=== PATIENT | female | born 1930 | race African-American/Black ===

== ENCOUNTER 2017-03-31 20:05 | Emergency (ER) | payer MEDICARE, OTHER ==
[~2017-03-31] VITALS: Ht 165.1 cm; Wt 65.0 kg
[~2017-03-31 20:05] MED LIST: BRIM0.2S4 EACH EYE; LORA1TAB12 PO; SENO8.6T5 PO; TIMO0.5S30 EACH EYE; TRAV0.00 EACH EYE; VITA400C28 PO
[2017-03-31 20:07] VITALS: BP 193/84; PULSE 97; RESP 18; TEMP 98.4; O2SAT 98
[2017-03-31 20:48] VITALS: O2SAT 99
[2017-03-31 21:00] LABS: AUTOMATED NEUTROPHIL # 3.7 TH/MM3 (1.8-7.7); BASOPHIL % 0.4 % (0.0-2.0); EOSINOPHIL # 0.1 TH/MM3 (0-0.4); EOSINOPHIL % 1.6 % (0.0-4.0); HEMATOCRIT 42.4 % (35.0-46.0); HEMO FLAGS DIFF FINAL; LYMPH % 25.7 % (9.0-44.0); LYMPHOCYTE # 1.5 TH/MM3 (1.0-4.8); MEAN CELL VOLUME 95.7 FL (80.0-100.0); MEAN CORPUSCULAR HEMOGLOBIN 32.5 PG (27.0-34.0); MEAN CORPUSCULAR HGB CONC 33.9 % (32.0-36.0); MONO % 10.2 % (0.0-8.0); NEUT % 62.1 % (16.0-70.0); PLATELET COUNT 210 TH/MM3 (150-450); RED BLOOD COUNT 4.43 MIL/MM3 (4.00-5.30); RED CELL DISTRIBUTION WIDTH 14.2 % (11.6-17.2); WHITE BLOOD COUNT 5.9 TH/MM3 (4.0-11.0)
[2017-03-31 21:13] LABS: APTT (PATIENT) 24.3 SEC (24.3-30.1); PROTHROMBIN TIME - PATIENT 11.2 SEC (9.8-11.6)
--- NOTE | 2017-03-31 21:13 | PD ---
HPI Chief Complaint: Cardiac Complaint Time Seen by Provider: 21:09 Travel History International Travel<30 days: No Contact w/Intl Traveler<30days: No Traveled to known affect area: No History of Present Illness HPI 86-year-old female that presents to the ED for evaluation of chest pressure and dizziness. Patient apparently has had this since yesterday. This is obtained from the family member as patient herself states that she only has back pain. Per patient she has had lower back pain for years almost 30 years since an injury. Per patient hurts to bend. Per family members she complained yesterday of chest pressure. She thought it was due to anxiety and her family member wanted her to get checked by a physician today but apparently she declined. She came here with an elder family member as well as her daughter and apparently her daughter had to leave bleeding because she had to go greens picker her prescription for pneumonia. She has no other complaints. Patient herself denies any chest pain or lightheadedness or dizziness. She has no allergies to medication. She is not taking anything for this. Again history is somewhat difficult to obtain as patient is telling me a different story than the family member. PFSH Past Medical History Medical History: Unable to Obtain ?: Not Past Surgical History Mastectomy: Yes (left side) Social History Alcohol Use: No Tobacco Use: No Substance Use: No Allergies-Medications (Allergen,Severity, Reaction): Coded Allergies: No Known Allergies (Unverified , 03/31/17) Reported Meds & Prescriptions Reported Meds & Active Scripts Active Reported Senokot (Sennosides) 8.6 Mg Tab 8.6 Mg PO HS Vitamin D (Cholecalciferol) 400 Unit Cap 1 Cap PO DAILY Timolol Opth Drops 0.5 % Soln 1 Drop EACH EYE BID Travatan Z Opth Drops (Travoprost) 0.004 % Soln 1 Drop EACH EYE HS Lorazepam 1 Mg Tab 1 Mg PO HS PRN Brimonidine Opth Drops (Brimonidine Tartrate) 0.2% Soln 1 Drop EACH EYE BID Review of Systems Except as stated in HPI: all other systems reviewed are Neg Physical Exam Narrative GENERAL: SKIN: Warm and dry. HEAD: Atraumatic. Normocephalic. EYES: Pupils equal and round. No scleral icterus. No injection or drainage. ENT: No nasal bleeding or discharge. Mucous membranes pink and moist. Tongue is midline, no uvula deviation. NECK: Trachea midline. No JVD. CARDIOVASCULAR: Regular rate and rhythm. No murmurs, S3, S4. RESPIRATORY: No accessory muscle use. Clear to auscultation. Breath sounds equal bilaterally. GASTROINTESTINAL: Abdomen soft, non-tender, nondistended. Hepatic and splenic margins not palpable. MUSCULOSKELETAL: Extremities without clubbing, cyanosis, or edema. No obvious deformities. Full ROM of the upper and lower extremities. pain on the lumbar musculature with bending. Minimal lumbar spine tenderness to palpation. No thoracic or cervical spine tenderness to palpation. 2+ pulses bilaterally. NEUROLOGICAL: Awake and alert. No obvious cranial nerve deficits. Motor grossly within normal limits. Five out of 5 muscle strength in the arms and legs. Normal speech. PSYCHIATRIC: Appropriate mood and affect; insight and judgment normal. Data Data Last Documented VS Vital Signs Date Time Temp Pulse Resp B/P Pulse Ox O2 Delivery O2 Flow Rate FiO2 03/31/17 20:48 99 Room Air 03/31/17 20:07 98.4 97 18 193/84 Orders Electrocardiogram (03/31/17 20:37) Complete Blood Count With Diff (03/31/17 20:37) Comprehensive Metabolic Panel (03/31/17 20:37) Ckmb (Isoenzyme) Profile (03/31/17 20:37) Troponin I (03/31/17 20:37) Prothrombin Time / Inr (Pt) (03/31/17 20:37) Act Partial Throm Time (Ptt) (03/31/17 20:37) Magnesium (Mg) (03/31/17 20:37) Thyroid Stimulating Hormone (03/31/17 20:37) Chest, Single Ap (03/31/17 20:37) Iv Access Insert/Monitor (03/31/17 20:37) Ecg Monitoring (03/31/17 20:37) Oximetry (03/31/17 20:37) Spine, Lumbar Comp W/Obliq (03/31/17 ) CKMB (03/31/17 20:47) CKMB% (03/31/17 20:47) Acetaminophen (Tylenol) (03/31/17 22:15) Labs Laboratory Tests Test 03/31/17 20:47 White Blood Count 5.9 TH/MM3 Red Blood Count 4.43 MIL/MM3 Hemoglobin 14.4 GM/DL Hematocrit 42.4 % Mean Corpuscular Volume 95.7 FL Mean Corpuscular Hemoglobin 32.5 PG Mean Corpuscular Hemoglobin 33.9 % Concent Red Cell Distribution Width 14.2 % Platelet Count 210 TH/MM3 Mean Platelet Volume 8.9 FL Neutrophils (%) (Auto) 62.1 % Lymphocytes (%) (Auto) 25.7 % Monocytes (%) (Auto) 10.2 % Eosinophils (%) (Auto) 1.6 % Basophils (%) (Auto) 0.4 % Neutrophils # (Auto) 3.7 TH/MM3 Lymphocytes # (Auto) 1.5 TH/MM3 Monocytes # (Auto) 0.6 TH/MM3 Eosinophils # (Auto) 0.1 TH/MM3 Basophils # (Auto) 0.0 TH/MM3 CBC Comment DIFF FINAL Differential Comment Prothrombin Time 11.2 SEC Prothromb Time International 1.0 RATIO Ratio Activated Partial 24.3 SEC Thromboplast Time Sodium Level 136 MEQ/L Potassium Level 4.1 MEQ/L Chloride Level 102 MEQ/L Carbon Dioxide Level 22.7 MEQ/L Anion Gap 11 MEQ/L Blood Urea Nitrogen 11 MG/DL Creatinine 1.09 MG/DL Estimat Glomerular Filtration 57 ML/MIN Rate Random Glucose 160 MG/DL Calcium Level 9.1 MG/DL Magnesium Level 2.3 MG/DL Total Bilirubin 0.5 MG/DL Aspartate Amino Transf 21 U/L (AST/SGOT) Alanine Aminotransferase 20 U/L (ALT/SGPT) Alkaline Phosphatase 54 U/L Total Creatine Kinase 104 U/L Creatine Kinase MB 1.0 NG/ML Troponin I 0.02 NG/ML Total Protein 7.6 GM/DL Albumin 3.8 GM/DL Thyroid Stimulating Hormone 1.190 uIU/ML [address] [place] [address] Medical Decision Making Medical Screen Exam Complete: Yes Emergency Medical Condition: Yes Medical Record Reviewed: Yes Interpretation(s) CBC & BMP Diagram 03/31/17 20:47 LFts WNL EKG shows sinus rhythm with no sign of acute ischemia and arrhythmia. Read by me and attending. Last Impressions Chest X-Ray 03/31/[id number] Signed Impressions: Service Date/Time: Friday, March 31, 2017 20:58 - CONCLUSION: No acute cardiopulmonary disease demonstrated. Compensated mild cardiomegaly. Tortuous thoracic aorta. Mino Pineda MD Lumbar Spine X-Ray 03/31/17 0000 Signed Impressions: Service Date/Time: Friday, March 31, 2017 21:02 - CONCLUSION: Multilevel degenerative changes as above. No fracture or subluxation of the lumbar spine. Mino Pineda MD Differential Diagnosis Chest pain versus atypical chest pain versus anxiety versus chronic back pain versus back pain Narrative Course 86-year-old female that presents to the ED for evaluation of back pain and possibly chest pain. Patient was properly examined and was found to have signs and symptoms of unclear etiology at this time. Patient does appear to have muscle scale back pain. X-ray will be done. Family member states that she's been complaining of chest pressure which do believe is secondary to anxiety. Patient is 86 years old and she does have risk factors for cardiac disease to her for cardiac workup was ordered. Patient and family agree with this. Labs and imaging showed no sign of acute disease. Patient still complains only of back pain. Denies any chest pain. My attending Dr. Graham evaluated the patient with me and agrees with plan. As was and imaging here everything was negative patient has no active chest pain with no recommend further workup for the chest pain. The recommend treating her pain with Tylenol. My attending agrees the patient can be safely discharged home. Patient was told this as well as family and they agree with plan. Follow with PCP. See ED for any worsening symptoms. Diagnosis Primary Impression: Back pain Qualified Code: M54.5 - Acute midline low back pain without sciatica Patient Instructions: General Instructions Additional Instructions: Tylenol or Motrin for pain as needed Follow-up with PCP. See ED for any worsening symptoms. Apply ice or heat as needed for pain Med/Other Pt SpecificInfo: No Change to Meds Disposition: 01 DISCHARGE HOME Condition: Stable Nain Brewster Mar 31, 2017 21:13
--- NOTE | 2017-03-31 21:23 | RADRPT ---
EXAM DATE/TIME: 03/31/2017 20:58 [facility] COMPARISON: No previous studies available for comparison. INDICATIONS : Chest pain and dizziness. MEDICAL HISTORY : None. SURGICAL HISTORY : None. ENCOUNTER: Initial ACUITY: 1 day PAIN SCORE: 2/10 LOCATION: Bilateral chest FINDINGS: No infiltrate, effusion or pneumothorax demonstrated. Mild cardiomegaly noted. Thoracic aorta is tort uous and atherosclerotic. CONCLUSION: No acute cardiopulmonary disease demonstrated. Compensated mild cardiomegaly. Tortuous thoracic aorta . Mino Pineda MD on March 31, 2017 at 21:20 Board Certified Radiologist. This report was verified electronically.
--- NOTE | 2017-03-31 21:25 | RADRPT ---
EXAM DATE/TIME: 03/31/2017 21:02 [facility] COMPARISON: No previous studies available for comparison. INDICATIONS : Lumbar spine pain. MEDICAL HISTORY : None. SURGICAL HISTORY : None. ENCOUNTER: Initial ACUITY: 1 day PAIN SCORE: 5/10 LOCATION: Bilateral lumbar spine FINDINGS: Of fracture or subluxation of the lumbar spine. Vertebral bodies have normal height. Moderate to severe disc space narrowing and chronic sclerosis of the vertebral body and plates seen a t L1/L2, L2/L3 and L3/L4. There are moderate changes at L4/L5 and L5/S1. CONCLUSION: Multilevel degenerative changes as above. No fracture or subluxation of the lumbar spine. Mino Pineda MD on March 31, 2017 at 21:22 Board Certified Radiologist. This report was verified electronically.
[2017-03-31 21:26] LABS: ALT (GPT) 20 U/L (10-53); ANION GAP 11 MEQ/L (5-15); AST (GOT) 21 U/L (15-37); BICARBONATE 22.7 MEQ/L (21.0-32.0); BLOOD UREA NITROGEN 11 MG/DL (7-18); CHLORIDE 102 MEQ/L (98-107); GLOMERULAR FILTRATION RATE 57 ML/MIN (>89); MAGNESIUM 2.3 MG/DL (1.5-2.5); SODIUM (NA) 136 MEQ/L (136-145)
[2017-03-31 21:31] LABS: POTASSIUM 4.1 MEQ/L (3.5-5.1)
[2017-03-31 21:37] LABS: ALKALINE PHOSPHATASE 54 U/L (45-117); CREATINE KINASE 104 U/L (26-192); TOTAL BILIRUBIN ADULT 0.5 MG/DL (0.2-1.0)
[2017-03-31] MEDS ORDERED: ACETAMINOPHEN 325 MG TAB PO ONE (22:15)
--- NOTE | 2017-03-31 22:43 | PD ---
Data Data Last Documented VS Vital Signs Date Time Temp Pulse Resp B/P Pulse Ox O2 Delivery O2 Flow Rate FiO2 03/31/17 20:48 99 Room Air 03/31/17 20:07 98.4 97 18 193/84 Orders Electrocardiogram (03/31/17 20:37) Complete Blood Count With Diff (03/31/17 20:37) Comprehensive Metabolic Panel (03/31/17 20:37) Ckmb (Isoenzyme) Profile (03/31/17 20:37) Troponin I (03/31/17 20:37) Prothrombin Time / Inr (Pt) (03/31/17 20:37) Act Partial Throm Time (Ptt) (03/31/17 20:37) Magnesium (Mg) (03/31/17 20:37) Thyroid Stimulating Hormone (03/31/17 20:37) Chest, Single Ap (03/31/17 20:37) Iv Access Insert/Monitor (03/31/17 20:37) Ecg Monitoring (03/31/17 20:37) Oximetry (03/31/17 20:37) Spine, Lumbar Comp W/Obliq (03/31/17 ) CKMB (03/31/17 20:47) CKMB% (03/31/17 20:47) Acetaminophen (Tylenol) (03/31/17 22:15) Labs Laboratory Tests Test 03/31/17 20:47 White Blood Count 5.9 TH/MM3 Red Blood Count 4.43 MIL/MM3 Hemoglobin 14.4 GM/DL Hematocrit 42.4 % Mean Corpuscular Volume 95.7 FL Mean Corpuscular Hemoglobin 32.5 PG Mean Corpuscular Hemoglobin 33.9 % Concent Red Cell Distribution Width 14.2 % Platelet Count 210 TH/MM3 Mean Platelet Volume 8.9 FL Neutrophils (%) (Auto) 62.1 % Lymphocytes (%) (Auto) 25.7 % Monocytes (%) (Auto) 10.2 % Eosinophils (%) (Auto) 1.6 % Basophils (%) (Auto) 0.4 % Neutrophils # (Auto) 3.7 TH/MM3 Lymphocytes # (Auto) 1.5 TH/MM3 Monocytes # (Auto) 0.6 TH/MM3 Eosinophils # (Auto) 0.1 TH/MM3 Basophils # (Auto) 0.0 TH/MM3 CBC Comment DIFF FINAL Differential Comment Prothrombin Time 11.2 SEC Prothromb Time International 1.0 RATIO Ratio Activated Partial 24.3 SEC Thromboplast Time Sodium Level 136 MEQ/L Potassium Level 4.1 MEQ/L Chloride Level 102 MEQ/L Carbon Dioxide Level 22.7 MEQ/L Anion Gap 11 MEQ/L Blood Urea Nitrogen 11 MG/DL Creatinine 1.09 MG/DL Estimat Glomerular Filtration 57 ML/MIN Rate Random Glucose 160 MG/DL Calcium Level 9.1 MG/DL Magnesium Level 2.3 MG/DL Total Bilirubin 0.5 MG/DL Aspartate Amino Transf 21 U/L (AST/SGOT) Alanine Aminotransferase 20 U/L (ALT/SGPT) Alkaline Phosphatase 54 U/L Total Creatine Kinase 104 U/L Creatine Kinase MB 1.0 NG/ML Troponin I 0.02 NG/ML Total Protein 7.6 GM/DL Albumin 3.8 GM/DL Thyroid Stimulating Hormone 1.190 uIU/ML 3rd Gen [facility] Supervised Visit with KWAKU: Yes Narrative Course The history, exam, and medical decision-making in the associated mid-level provider note were completed with my assistance. I reviewed and agree with the findings presented. I attest that I had a [id number] encounter with the patient on the same day, and personally performed and documented my assessment and findings in the medical record. *My assessment and Findings: 86 year-old woman, clinical some chest and back pain. Looks well. Patient has no pain now. The history is a little bit unclear as or stiffness when with the family and the patient reports. Nonetheless she looks well. The symptoms don' t seem especially concerning for ACS. Her labs are unremarkable. EKG is reassuring. Recommend close outpatient follow-up. Tylenol for back pain. Diagnosis Primary Impression: Back pain Qualified Code: M54.5 - Acute midline low back pain without sciatica Patient Instructions: General Instructions, Back Pain (ED) Departure Forms: Tests/Procedures Additional Instruction: Tylenol or Motrin for pain as needed Follow-up with PCP. See ED for any worsening symptoms. Apply ice or heat as needed for pain Disposition: 01 DISCHARGE HOME Condition: Stable Prashanth Graham MD Mar 31, 2017 22:43
--- NOTE | 2017-04-01 08:05 | EKG ---
Date Performed: 03/31/2017 Time Performed: 20:51:39 PTAGE: 86 years EKG: Sinus rhythm POSSIBLE LEFT ATRIAL ENLARGEMENT POSSIBLE LEFT VENTRICULAR HYPERTROPHY ABNORMAL ECG COMPARED TO PRIO R ELECTROCARDIOGRAM, There is mild anterior ST elevation. This does not reach significance but clini fidel correlation is suggested. PREVIOUS TRACING : 01/20/1996 13.49 DOCTOR: Royce Haney Interpretating Date/Time 04/01/2017 08:02:57
== END 2017-03-31 22:32 | disposition home or self-care (01) ==
LOC: NEPC 20:05
DX: M54.5 Low back pain (principal); R42 Dizziness and giddiness; R94.31 Abnormal electrocardiogram [ECG] [EKG]
CPT/HCPCS: 71010; 72110; 80053; 82550; 82552; 83735; 84443; 84484; 85025; 85610; 85730; 93005; 99285

== ENCOUNTER 2017-04-06 15:12 | Observation (INO) | payer MEDICARE, OTHER ==
[~2017-04-06] VITALS: Ht 160 cm; Wt 50.0 kg
[2017-04-06 15:44] VITALS: BP 159/79; PULSE 106; RESP 16; TEMP 98.6; O2SAT 98
[2017-04-06 15:47] VITALS: BP 159/79; PULSE 104; RESP 16; TEMP 98.6; O2SAT 98
[2017-04-06] MEDS ORDERED: SODIUM CHLORIDE 0.9% FLUSH 5 ML FLUSH IV FLUSH PRN (16:00)
--- NOTE | 2017-04-06 16:06 | PD ---
HPI Chief Complaint: Psychiatric Symptoms Time Seen by Provider: 15:59 Travel History International Travel<30 days: No Contact w/Intl Traveler<30days: No Traveled to known affect area: No History of Present Illness HPI 86-year-old [place] female brought in by ambulance with reports of acute mental status changes. EMS reports that the daughter states the patient has been more confused and complaining of visual hallucinations. Patient has a history of dementia. She was recently seen with complaints of back pain and treated with Tylenol just this past week. Patient was reported to have chest pressure at that time as well. Cardiac workup was not initiated after preliminary labs were completed at that time. Currently patient only complains of her chronic low back pain which she's had for many years after an accident 30 years prior. She denies fever, chills, or other symptoms. She however is somewhat limited secondary to the patient's dementia. He does appear confused, and answers are somewhat confusing. She has no known drug allergies PFSH Past Medical History Dementia: Yes Influenza Vaccination: No ?: Not Past Surgical History Surgical History: Unable to Obtain Mastectomy: Yes (left side) Social History Alcohol Use: Yes (1 PER DAY) Tobacco Use: No Substance Use: No Allergies-Medications (Allergen,Severity, Reaction): Coded Allergies: No Known Allergies (Unverified , 04/06/17) Reported Meds & Prescriptions Reported Meds & Active Scripts Active Reported Senokot (Sennosides) 8.6 Mg Tab 8.6 Mg PO HS Vitamin D (Cholecalciferol) 400 Unit Cap 1 Cap PO DAILY Timolol Opth Drops 0.5 % Soln 1 Drop EACH EYE BID Travatan Z Opth Drops (Travoprost) 0.004 % Soln 1 Drop EACH EYE HS Lorazepam 1 Mg Tab 1 Mg PO HS PRN Brimonidine Opth Drops (Brimonidine Tartrate) 0.2% Soln 1 Drop EACH EYE BID Review of Systems ROS Limitations: Clinical Condition, Altered Mental Status, Poor Historian General / Constitutional: No: Fever Eyes: No: Visual changes HENT: No: Headaches Cardiovascular: No: Chest Pain or Discomfort Respiratory: No: Shortness of Breath Gastrointestinal: No: Abdominal Pain Genitourinary: No: Dysuria Musculoskeletal: No: Pain Skin: No Rash Neurologic: No: Weakness Psychiatric: No: Depression Endocrine: No: Polydipsia Hematologic/Lymphatic: No: Easy Bruising Physical Exam Exam Limitations: Clinical Condition, Altered Mental Status, Poor Historian Narrative GENERAL: Patient appears in no acute distress. SKIN: Warm and dry. Normal color. Normal turgor. No rash. HEAD: Atraumatic. Normocephalic. EYES: Pupils equal and round. No scleral icterus. No injection or drainage. ENT: No nasal bleeding or discharge. Mucous membranes pink and moist. Pharynx is clear. Airway is patent. NECK: Trachea midline. No JVD. Supple and nontender. CARDIOVASCULAR: Regular rate and rhythm. No murmurs gallops or rubs appreciated. RESPIRATORY: No accessory muscle use. Clear to auscultation. Breath sounds equal bilaterally. GASTROINTESTINAL: Abdomen soft, non-tender, nondistended. Hepatic and splenic margins not palpable. MUSCULOSKELETAL: Extremities without clubbing, cyanosis, or edema. No obvious deformities. NEUROLOGICAL: Awake and alert. No obvious cranial nerve deficits. Motor grossly within normal limits. Five out of 5 muscle strength in the arms and legs. Normal speech. PSYCHIATRIC: Appropriate mood and affect; insight and judgment normal. Data Data Last Documented VS Vital Signs Date Time Temp Pulse Resp B/P Pulse Ox O2 Delivery O2 Flow Rate FiO2 04/06/17 18:26 99 16 189/84 99 Room Air 04/06/17 15:47 98.6 Orders Electrocardiogram (04/06/17 15:53) Complete Blood Count With Diff (04/06/17 15:53) Comprehensive Metabolic Panel (04/06/17 15:53) Creatine Kinase (Cpk) (04/06/17 15:53) Prothrombin Time / Inr (Pt) (04/06/17 15:53) Act Partial Throm Time (Ptt) (04/06/17 15:53) Troponin I (04/06/17 15:53) Thyroid Stimulating Hormone (04/06/17 15:53) Urinalysis - C+S If Indicated (04/06/17 15:53) Chest, Single Ap (04/06/17 15:53) Blood Glucose (04/06/17 15:53) Ecg Monitoring (04/06/17 15:53) Iv Access Insert/Monitor (04/06/17 15:53) Cath For Specimen (04/06/17 15:53) Oximetry (6/19/17 15:53) Sodium Chloride 0.9% Flush (Ns Flush) (04/06/17 16:00) Ct Brain W/O Iv Contrast(Rout) (04/06/17 15:53) Sodium Chlorid 0.9% 500 Ml Inj (Ns 500 M (04/06/17 16:45) Urine Culture (04/06/17 16:37) Ceftriaxone Inj (Rocephin Inj) (04/06/17 17:07) Labs Laboratory Tests Test 04/06/17 04/06/17 16:37 17:26 Urine Color LIGHT-YELLOW Urine Turbidity CLEAR Urine pH 5.0 Urine Specific [place] 1.005 Urine Protein NEG mg/dL Urine Glucose (UA) NEG mg/dL Urine Ketones NEG mg/dL Urine Occult Blood NEG Urine Nitrite NEG Urine Bilirubin NEG Urine Urobilinogen LESS THAN 2.0 MG/DL Urine Leukocyte Esterase MOD Urine RBC 1 /hpf Urine WBC 7 /hpf Urine Squamous Epithelial <1 /hpf Cells Urine Bacteria OCC /hpf Urine Hyaline Casts 1 /lpf Microscopic Urinalysis Comment CATH-CULTURE IND White Blood Count 5.1 TH/MM3 Red Blood Count 4.03 MIL/MM3 Hemoglobin 13.4 GM/DL Hematocrit 38.5 % Mean Corpuscular Volume 95.6 FL Mean Corpuscular Hemoglobin 33.3 PG Mean Corpuscular Hemoglobin 34.8 % Concent Red Cell Distribution Width 13.7 % Platelet Count 184 TH/MM3 Mean Platelet Volume 9.1 FL Neutrophils (%) (Auto) 62.7 % Lymphocytes (%) (Auto) 24.1 % Monocytes (%) (Auto) 12.4 % Eosinophils (%) (Auto) 0.4 % Basophils (%) (Auto) 0.4 % Neutrophils # (Auto) 3.2 TH/MM3 Lymphocytes # (Auto) 1.2 TH/MM3 Monocytes # (Auto) 0.6 TH/MM3 Eosinophils # (Auto) 0.0 TH/MM3 Basophils # (Auto) 0.0 TH/MM3 CBC Comment DIFF FINAL Differential Comment Prothrombin Time 11.9 SEC Prothromb Time International 1.1 RATIO Ratio Activated Partial 21.0 SEC Thromboplast Time Sodium Level 141 MEQ/L Potassium Level 3.3 MEQ/L Chloride Level 107 MEQ/L Carbon Dioxide Level 22.4 MEQ/L Anion Gap 12 MEQ/L Blood Urea Nitrogen 8 MG/DL Creatinine 0.76 MG/DL Estimat Glomerular Filtration 87 ML/MIN Rate Random Glucose 96 MG/DL Calcium Level 8.1 MG/DL Total Bilirubin 0.4 MG/DL Aspartate Amino Transf 15 U/L (AST/SGOT) Alanine Aminotransferase 14 U/L (ALT/SGPT) Alkaline Phosphatase 39 U/L Troponin I 0.03 NG/ML Total Protein 6.5 GM/DL Albumin 3.4 GM/DL Thyroid Stimulating Hormone 0.583 uIU/ML 3rd Gen [facility] Medical Decision Making Medical Screen Exam Complete: Yes Emergency Medical Condition: Yes Medical Record Reviewed: Yes Differential Diagnosis Acute mental status change. Urinary tract infection. Worsening dementia. Visual hallucinations. Narrative Course Patient appears medically stable at time of exam. EKG and chest x-ray are ordered. CT of the head is ordered. Labs ordered including CBC, CMP, cardiac panel, urinalysis. EKG shows atrial fibrillation with rapid ventricular response. Also voltage criteria for LVH. Nonspecific ST changes. This is reviewed with Dr. Bacon. Chest x-ray is unremarkable for acute process per radiologist. CT of the head is unremarkable per radiologist for acute process. Urinalysis is suggestive of urinary tract infection. Patient is given 1000 mg Rocephin IV. This is in addition to 500 mL of normal saline bolus. Patient's CBC is unremarkable. CMP is essentially unremarkable other is slightly low potassium 3.3. And calcium of 8.1. Alkaline phosphatase is 39. Troponin is negative at 0.03 TSH is normal. Patient is discussed with Dr. Pelayo who recommends obvious for diagnosis of urinary tract infection with mental status changes. 1820 hrs. call was placed to the hospitalist for admission. Diagnosis Primary Impression: Mental status change Qualified Code: R41.0 - Disorientation Additional Impression: Urinary tract infection Qualified Code: N30.00 - Acute cystitis without hematuria Admitting Information Admitting Physician Requests: Observation Condition: Stable Puma Tinoco Apr 06, 2017 16:06
--- NOTE | 2017-04-06 16:28 | RADRPT ---
EXAM DATE/TIME: 04/06/2017 15:59 [facility] COMPARISON: CHEST SINGLE AP, March 31, 2017, 20:58. SPINE LUMBAR COMPLETE W/OBLIQ, March 31, 2017, 21:02. INDICATIONS : Syncopal episode. MEDICAL HISTORY : None. SURGICAL HISTORY : None. ENCOUNTER: Initial ACUITY: 1 day PAIN SCORE: 0/10 LOCATION: Bilateral chest FINDINGS: The heart is mildly enlarged. There are COPD changes within the pulmonary parenchyma. The lungs are o therwise clear. The visualized bony structures are grossly intact. CONCLUSION: 1. COPD changes and mild cardiomegaly. No acute abnormality. Hollis Rodriguez MD on April 06, 2017 at 16:25 Board Certified Radiologist. This report was verified electronically.
[2017-04-06] MEDS ORDERED: SODIUM CHLORID 0.9% 500 ML INJ 500 ML IV ONE (16:45)
[2017-04-06 17:04] LABS: BACTERIA, URINE OCC /hpf; BLOOD, URINE NEG (NEG); COMMENT (UR) CATH-CULTURE IND; CULTURE IF INDICATED CATH CULTURE IND; GLUCOSE,URINE NEG (NEG); HYALINE CAST, URINE 1 /lpf (RARE); KETONE, URINE NEG (NEG); NITRITE,URINE NEG (NEG); SQUAMOUS EPITHELIAL CELL URINE <1 /hpf (0-5); URINE COLOR LIGHT-YELLOW (YELLW/STRAW)
[2017-04-06] MEDS ORDERED: cefTRIAXone INJ 1,000 MG in SODIUM CHLORIDE 0.9% INJ 100 ML IV STA (17:07)
--- NOTE | 2017-04-06 17:26 | RADRPT ---
EXAM DATE/TIME: 04/06/2017 16:57 [facility] COMPARISON: No previous studies available for comparison. INDICATIONS : Holusinations today RADIATION DOSE: 56.36 CTDIvol (mGy) MEDICAL HISTORY : Dementia. SURGICAL HISTORY : Tonsillectomy. ENCOUNTER: Initial ACUITY: 1 day PAIN SCALE: 0/10 LOCATION: cranial TECHNIQUE: Multiple contiguous axial images were obtained of the head. Using automated exposure control and adj ustment of the mA and/or kV according to patient size, radiation dose was kept as low as reasonably a chievable to obtain optimal diagnostic quality images. FINDINGS: CEREBRUM: The ventricles are normal for age. No evidence of midline shift, mass lesion, hemorrhage or acute in farction. No extra-axial fluid collections are seen. POSTERIOR FOSSA: The cerebellum and brainstem are intact. The 4th ventricle is midline. The cerebellopontine angle i s unremarkable. EXTRACRANIAL: The visualized portion of the orbits is intact. SKULL: The calvaria is intact. No evidence of skull fracture. CONCLUSION: 1. No acute intracranial abnormality identified. Hollis Rodriguez MD on April 06, 2017 at 17:20 Board Certified Radiologist. This report was verified electronically.
[2017-04-06 17:49] LABS: AUTOMATED NEUTROPHIL # 3.2 TH/MM3 (1.8-7.7); BASOPHIL % 0.4 % (0.0-2.0); EOSINOPHIL % 0.4 % (0.0-4.0); HEMATOCRIT 38.5 % (35.0-46.0); HEMO FLAGS DIFF FINAL; LYMPH % 24.1 % (9.0-44.0); LYMPHOCYTE # 1.2 TH/MM3 (1.0-4.8); MEAN CELL VOLUME 95.6 FL (80.0-100.0); MEAN CORPUSCULAR HEMOGLOBIN 33.3 PG (27.0-34.0); MEAN CORPUSCULAR HGB CONC 34.8 % (32.0-36.0); MONO % 12.4 % (0.0-8.0); NEUT % 62.7 % (16.0-70.0); PLATELET COUNT 184 TH/MM3 (150-450); RED BLOOD COUNT 4.03 MIL/MM3 (4.00-5.30); RED CELL DISTRIBUTION WIDTH 13.7 % (11.6-17.2); WHITE BLOOD COUNT 5.1 TH/MM3 (4.0-11.0)
[2017-04-06 18:06] LABS: INTERNATIONAL NORMALIZED RATIO 1.1 RATIO; PROTHROMBIN TIME - PATIENT 11.9 SEC (9.8-11.6)
[2017-04-06 18:10] LABS: ANION GAP 12 MEQ/L (5-15); BICARBONATE 22.4 MEQ/L (21.0-32.0); BLOOD UREA NITROGEN 8 MG/DL (7-18); CHLORIDE 107 MEQ/L (98-107); GLOMERULAR FILTRATION RATE 87 ML/MIN (>89); POTASSIUM 3.3 MEQ/L (3.5-5.1); SODIUM (NA) 141 MEQ/L (136-145)
[2017-04-06 18:21] LABS: ALKALINE PHOSPHATASE 39 U/L (45-117); ALT (GPT) 14 U/L (10-53); AST (GOT) 15 U/L (15-37); TOTAL BILIRUBIN ADULT 0.4 MG/DL (0.2-1.0)
[2017-04-06 18:26] VITALS: BP 189/84; PULSE 99; RESP 16; O2SAT 99
[2017-04-06] MEDS ORDERED: ACETAMINOPHEN 325 MG TAB PO PRN (19:00)
[2017-04-06] MEDS ORDERED: LACTULOSE SYRUP 20 GM/30 ML CUP PO PRN (19:00)
[2017-04-06] MEDS ORDERED: BISACODYL 10 MG SUPP RECTAL PRN (19:00)
[2017-04-06] MEDS ORDERED: SODIUM CHLORIDE 0.9% FLUSH 10 ML FLUSH IV FLUSH PRN (19:00)
[2017-04-06] MEDS ORDERED: SENNOSIDES 8.6 MG TAB PO PRN (19:00)
[2017-04-06] MEDS ORDERED: ONDANSETRON HCL 4 MG/2 ML VIAL IVP PRN (19:00)
[2017-04-06] MEDS ORDERED: MAGNESIUM HYDROXIDE SUSP 30 ML CUP PO PRN (19:00)
[2017-04-06] MEDS ORDERED: NALOXONE HCL 0.4 MG/ML AMP IV PRN (19:00)
[2017-04-06 19:33] LABS: CREATINE KINASE 95 U/L (26-192)
[2017-04-06 19:52] VITALS: BP 177/83
[2017-04-06] MEDS: DOCUSATE SODIUM 50 MG/SENNA 8.6 MG TAB PO SCH (20:26)
[2017-04-06] MEDS: SODIUM CHLOR 0.9% 1000 ML INJ 1,000 ML IV SCH (20:31)
[2017-04-06] MEDS: SODIUM CHLORIDE 0.9% FLUSH 10 ML FLUSH IV FLUSH SCH (20:32)
[2017-04-06 21:33] VITALS: BP 165/108; PULSE 79; RESP 20; TEMP 97.9; O2SAT 95
[2017-04-06] MEDS ORDERED: LORazepam 2 MG/ML VIAL IV PUSH ONE (23:45)
[2017-04-07] MEDS ORDERED: HALOPERIDOL LACTATE 5 MG/ML AMP IM ONE (00:15)
--- NOTE | 2017-04-07 01:29 | HHI.HP ---
[facility] Service [facility] Primary Care Physician Kandice Crain MD Admission Diagnosis UTI with Mental Status Changes Diagnoses: Travel History International Travel<30 Days: No Contact w/Intl Traveler <30 Da: No Traveled to Known Affected Are: No History of Present Illness History and patient, ER provider communication, and review of medical records. Patient was brought in by ambulance because apparently her daughter had called ambulance because patient was more agitated than her usual and was having some visual hallucinations. In the emergency room, patient's workup revealed evidence of UTI. While in CDU, patient's nursing staff also reported that patient was quite agitated and walking in the hallways. She required Haldol administration to reorient her back. However, upon my arrival, patient is awake and alert. Noted she is quite forgetful at times. She reports to me that she lives by herself. She states she told her daughter to call the ambulance. She reports that she was short of breath for the past few days. Stated this shortness of breath is also on and off. She states that she also have chronic back pain which she described as " third vertebrae" pain. She also reports of history of angina. Patient denies any cough/nausea/vomiting/diarrhea. Denies any fever. Denies any burning urination or pain on urination or frequent urination. She does however state that her urine has some funny smell to it. She stated she could not stand it. Reports of some dizziness but did not pass out. She stated she called it as weakness. Denies any blood in her urine or in her stool. She did admit to having visual hallucinations. She stated that she see men walking, about 20 of them. She stated next time she turned around and looked, they were gone. Denies any prior history of hallucinations. Patient was able to recall that she used to take lorazepam. She was able to pronounce the name of the medication. She states however that he has not been taking it for a long while now. She was taking it previously for anxiety. She was also able to spell out the name of her primary care doctor to me. Dr. Crain. Review of Systems Except as stated in HPI: all other systems reviewed are Neg Past Family Social History Past Medical History none breast cancer possibly- not sure- but had left mastectomy Past Surgical History breast sx - 50yrs ago- left side tonsillectomy appendix per pt Reported Medications pt is able to remember that she takes lorazepam- stopped taking long ago per pt eye drops Allergies: Coded Allergies: No Known Allergies (Unverified , 04/06/17) Family History diabetes - brother Social History no smoking. no etoh, no drugs Physical Exam Vital Signs Vital Signs Date Time Temp Pulse Resp B/P Pulse Ox O2 Delivery O2 Flow Rate FiO2 04/06/17 21:33 97.9 79 20 165/108 95 04/06/17 19:52 177/83 04/06/17 18:26 99 16 189/84 99 Room Air 04/06/17 15:47 98.6 104 16 159/79 98 Room Air 04/06/17 15:44 98.6 106 16 159/79 98 Physical Exam GENERAL: This is a thin elderly lady, not in acute distress. SKIN: No rashes, ecchymoses or lesions. Cool and dry. HEAD: Atraumatic. Normocephalic. No temporal or scalp tenderness. EYES: No scleral icterus. No injection or drainage. ENT: Nose without bleeding, purulent drainage or septal hematoma. . Airway patent. NECK: Trachea midline. No JVD CARDIOVASCULAR: Regular rate and rhythm without murmurs, gallops, or rubs. RESPIRATORY: Clear to auscultation. Breath sounds equal bilaterally. No wheezes , rales, or rhonchi. GASTROINTESTINAL: Abdomen soft, non-tender, nondistended. No guarding. MUSCULOSKELETAL: Extremities without clubbing, cyanosis, or edema. No calf tenderness. NEUROLOGICAL: Awake, seems alert, although does seen to have baseline dementia. Moving all 4 limbs. Normal speech. Laboratory Laboratory Tests Test 04/06/17 04/06/17 16:37 17:26 Urine Color LIGHT-YELLOW Urine Turbidity CLEAR Urine pH 5.0 Urine Specific [place] 1.005 Urine Protein NEG Urine Glucose (UA) NEG Urine Ketones NEG Urine Occult Blood NEG Urine Nitrite NEG Urine Bilirubin NEG Urine Urobilinogen LESS THAN 2.0 Urine Leukocyte Esterase MOD Urine RBC 1 Urine WBC 7 Urine Squamous Epithelial <1 Cells Urine Bacteria OCC Urine Hyaline Casts 1 Microscopic Urinalysis Comment CATH-CULTURE IND White Blood Count 5.1 Red Blood Count 4.03 Hemoglobin 13.4 Hematocrit 38.5 Mean Corpuscular Volume 95.6 Mean Corpuscular Hemoglobin 33.3 Mean Corpuscular Hemoglobin 34.8 Concent Red Cell Distribution Width 13.7 Platelet Count 184 Mean Platelet Volume 9.1 Neutrophils (%) (Auto) 62.7 Lymphocytes (%) (Auto) 24.1 Monocytes (%) (Auto) 12.4 Eosinophils (%) (Auto) 0.4 Basophils (%) (Auto) 0.4 Neutrophils # (Auto) 3.2 Lymphocytes # (Auto) 1.2 Monocytes # (Auto) 0.6 Eosinophils # (Auto) 0.0 Basophils # (Auto) 0.0 CBC Comment DIFF FINAL Differential Comment Prothrombin Time 11.9 Prothromb Time International 1.1 Ratio Activated Partial 21.0 Thromboplast Time Sodium Level 141 Potassium Level 3.3 Chloride Level 107 Carbon Dioxide Level 22.4 Anion Gap 12 Blood Urea Nitrogen 8 Creatinine 0.76 Estimat Glomerular Filtration 87 Rate Random Glucose 96 Calcium Level 8.1 Total Bilirubin 0.4 Aspartate Amino Transf 15 (AST/SGOT) Alanine Aminotransferase 14 (ALT/SGPT) Alkaline Phosphatase 39 Total Creatine Kinase 95 Troponin I 0.03 Total Protein 6.5 Albumin 3.4 Thyroid Stimulating Hormone 0.583 3rd Gen Date/Time Procedure Status Source Growth 04/06/17 16:37 Urine Culture Received Urine Catheterized Urine Pending Result Diagram: 04/06/17 1726 04/06/17 1726 Imaging Last [address] 04/06/17 1553 Signed Impressions: Service Date/Time: Thursday, April 06, 2017 16:57 - CONCLUSION: 1. No acute intracranial abnormality identified. Hollis Rodriguez MD Chest X-Ray 04/06/17 1553 Signed Impressions: Service Date/Time: Thursday, April 06, 2017 15:59 - CONCLUSION: 1. COPD changes and mild cardiomegaly. No acute abnormality. Hollis Rodriguez MD Assessment and Plan Problem List: (1) Mental status change ICD Code: R41.82 Status: Acute (2) Urinary tract infection ICD Code: N39.0 Status: Acute Assessment and Plan Impression: Altered mental statuslikely secondary to UTI. Dementia Hypokalemia Plan: Patient was started on Rocephin in ER. For now, would continue her on same regimen. We'll follow culture results. Replace potassium 40 mEq by mouth one dose now. Would need collateral information from family members regarding her living status and possible dementia. His management consult for discharge planning. DVT prophylaxiswith SCD. Discussed Condition With Patient, ER provider, nursing staff Problem Qualifiers (1) Mental status change: Qualified Code: R41.0 - Disorientation (2) Urinary tract infection: Qualified Code: N30.00 - Acute cystitis without hematuria Chirag Macedo MD Apr 07, 2017 01:29
[2017-04-07 04:35] VITALS: BP 176/86; PULSE 88; RESP 22
[2017-04-07] MEDS: SODIUM CHLOR 0.9% 1000 ML INJ 1,000 ML IV SCH ×2 (05:12→15:53)
[2017-04-07] MEDS ORDERED: LORazepam 2 MG/ML VIAL IV PUSH ONE (05:15)
[2017-04-07] MEDS ORDERED: POTASSIUM CHLORIDE 20 MEQ CONTROLLED RELEASE TAB PO ONE (07:30)
[2017-04-07 07:39] VITALS: BP 167/88; PULSE 78; RESP 20; TEMP 96.2; O2SAT 100
[2017-04-07] MEDS: DOCUSATE SODIUM 50 MG/SENNA 8.6 MG TAB PO SCH ×2 (07:47→19:57)
[2017-04-07] MEDS: SODIUM CHLORIDE 0.9% FLUSH 10 ML FLUSH IV FLUSH SCH ×2 (07:49→19:56)
--- NOTE | 2017-04-07 10:01 | HHI.PR ---
Subjective Remarks Follow up UTI, AMS. Patient seen and examined in presence of a sitter. Patient wanders at night so a sitter was ordered. Patient is sleepy but oriented to self and year, states she is in the kitchen. Denies any chest pain, sob, fever or chills. She states she lives alone and takes care of her self. It is undetermined how much she can really care for herself. Objective Vitals Vital Signs Date Time Temp Pulse Resp B/P Pulse Ox O2 Delivery O2 Flow Rate FiO2 04/07/17 07:39 96.2 78 20 167/88 100 04/07/17 04:35 88 22 176/86 04/06/17 21:33 97.9 79 20 165/108 95 04/06/17 19:52 177/83 04/06/17 18:26 99 16 189/84 99 Room Air 04/06/17 15:47 98.6 104 16 159/79 98 Room Air 04/06/17 15:44 98.6 106 16 159/79 98 I/O 04/06/17 04/06/17 04/06/17 04/07/17 04/07/17 04/07/17 07:00 15:00 23:00 07:00 15:00 23:00 Intake Total 300 ml Balance 300 ml Intake Oral 300 ml Result Diagram: 04/06/17 1726 04/06/17 1726 Imaging Last Impressions Head CT 04/06/17 1553 Signed Impressions: Service Date/Time: Thursday, April 06, 2017 16:57 - CONCLUSION: 1. No acute intracranial abnormality identified. Hollis Rodriguez MD Chest X-Ray 04/06/17 1553 Signed Impressions: Service Date/Time: Thursday, April 06, 2017 15:59 - CONCLUSION: 1. COPD changes and mild cardiomegaly. No acute abnormality. Hollis Rodriguez MD Objective Remarks GENERAL: Well nourished patient, laying in bed resting SKIN: Warm and dry. HEAD: Atraumatic. Normocephalic. EYES: Pupils equal and round. No scleral icterus. No injection or drainage. ENT: No nasal bleeding or discharge. Mucous membranes pink and moist. NECK: Trachea midline. No JVD. CARDIOVASCULAR: Regular rate and rhythm. RESPIRATORY: No accessory muscle use. Clear to auscultation. Breath sounds equal bilaterally. GASTROINTESTINAL: Abdomen soft, non-tender, nondistended. Hepatic and splenic margins not palpable. MUSCULOSKELETAL: Extremities without clubbing, cyanosis, or edema. No obvious deformities. NEUROLOGICAL: Sleepy and oriented to self and year. Motor grossly within normal limits. Normal speech. PSYCHIATRIC: Appropriate mood and affect; insight and judgment normal. Medications and IVs Current Medications Medications (Trade) Dose Ordered Sig/Tracy Route Start Time Stop Time Status Last Admin (NS 1000 ml Inj) 1,000 ml @ 100 mls/hr Q10H IV 04/06/17 18:47 04/07/17 05:12 (NS Flush) 2 ml UNSCH PRN IV FLUSH 04/06/17 19:00 (NS Flush) 2 ml BID IV FLUSH 04/06/17 21:00 04/07/17 07:49 (Tylenol) 650 mg Q4H PRN PO 04/06/17 19:00 (Zofran Inj) 4 mg Q6H PRN IVP 04/06/17 19:00 (Narcan Inj) 0.4 mg UNSCH PRN IV 04/06/17 19:00 (Darlene-Colace) 1 tab BID PO 04/06/17 21:00 04/07/17 07:47 (Milk Of Magnesia Liq) 30 ml Q12H PRN PO 04/06/17 19:00 (Senokot) 17.2 mg Q12H PRN PO 04/06/17 19:00 (Dulcolax Supp) 10 mg DAILY PRN RECTAL 04/06/17 19:00 Lactulose 30 ml 30 ml DAILY PRN PO 04/06/17 19:00 (Rocephin Inj/NS Inj) 100 ml @ 200 mls/hr Q24H IV 04/07/17 17:00 A/P Problem List: (1) Altered mental status ICD Code: R41.82 Status: Acute (2) Urinary tract infection ICD Code: N39.0 Status: Acute Assessment and Plan AMS suspected due to UTI, Head CT negative -Cont neuro checks -Cont sitter UTI, suspect Ecoli UA shows high wbcs, with bacteria -urine culture pending -Cont Rocephin IV Hypokalemia, potassium 3.3->4.0 -40meq given PO -Cont to trend, replace as needed Dementia, chronic -Case management consulted for possible placement -PT eval and treat DVT prophylaxis: SCDs Discharge Planning Possible tomorrow with [facility] Problem Qualifiers (1) Altered mental status: Qualified Code: R41.0 - Disorientation (2) Urinary tract infection: Qualified Code: N30.00 - Acute cystitis without hematuria Shy Marte Apr 07, 2017 10:01
--- NOTE | 2017-04-07 10:47 | HHI.FF ---
Face to Face Verification Diagnosis: (1) Urinary tract infection (2) Altered mental status (3) Primary open angle glaucoma of both eyes, mild stage Physical Therapy Order: Evaluate and Treat Home Health Nursing Order: Medical education Signs/symptoms of disease process Medication education-adverse effect Nursing assessment with vital signs Instructions: Assist with Medication setup and compliance Underwater [employer] Tra[employer] Order: To Evaluate: Living conditions/environment Order: To Provide: Long range planning, Community services I have seen patient Violeta Lau on 04/07/17. My clinical findings support the need for the requested home health care services because: Ltd mobility - disease progression Deconditioned w/ increased weakness Med compliance is questionable Limited ability to care for self Impaired cognition/judgement High risk of falls I certify that my clinical findings support that this patient is homebound because: Impaired cognitive ability/safety Unsafe to leave home unassisted Unable to use public transportation Shy Marte Apr 07, 2017 10:47
[2017-04-07 11:00] LABS: BICARBONATE 26.3 MEQ/L (21.0-32.0)
[2017-04-07 12:03] LABS: AUTOMATED NEUTROPHIL # 3.4 TH/MM3 (1.8-7.7); BASOPHIL # 0.1 TH/MM3 (0-0.2); EOSINOPHIL # 0.1 TH/MM3 (0-0.4); EOSINOPHIL % 1.9 % (0.0-4.0); HEMATOCRIT 42.8 % (35.0-46.0); HEMO FLAGS DIFF FINAL; LYMPH % 23.1 % (9.0-44.0); LYMPHOCYTE # 1.3 TH/MM3 (1.0-4.8); MEAN CELL VOLUME 97.5 FL (80.0-100.0); MEAN CORPUSCULAR HEMOGLOBIN 31.9 PG (27.0-34.0); MEAN CORPUSCULAR HGB CONC 32.7 % (32.0-36.0); PLATELET COUNT 166 TH/MM3 (150-450); RED BLOOD COUNT 4.38 MIL/MM3 (4.00-5.30); RED CELL DISTRIBUTION WIDTH 13.9 % (11.6-17.2); WHITE BLOOD COUNT 5.8 TH/MM3 (4.0-11.0)
[2017-04-07 12:25] VITALS: BP 166/78; PULSE 73; RESP 18; TEMP 97.5; O2SAT 99
[2017-04-07] MEDS ORDERED: cefTRIAXone INJ 1,000 MG in SODIUM CHLORIDE 0.9% INJ 100 ML IV SCH (17:00)
--- NOTE | 2017-04-07 17:20 | EKG ---
Date Performed: 04/06/2017 Time Performed: 16:11:54 PTAGE: 86 years EKG: SINUS TACHYCARDIA POSSIBLE LEFT ATRIAL ENLARGEMENT POSSIBLE LEFT VENTRICULAR HYPERTROPHY NO NSPECIFIC T-WAVE ABNORMALITY ABNORMAL ECG PREVIOUS TRACING : 03/31/2017 20.51 Compared to previous tracing, the patient is now tachycardi c. DOCTOR: Zenaida Roberts Interpretating Date/Time 04/07/2017 17:16:38
[2017-04-07] MEDS: TIMOLOL MALEATE 0.5% OPHT SOLN 5 ML BTL EACH EYE SCH (19:57)
[2017-04-07] MEDS: BRIMONIDINE TARTRATE 0.2% OPHT SOLN 5 ML BTL EACH EYE SCH (19:57)
[2017-04-07 20:00] VITALS: BP 174/87; PULSE 87; RESP 18; TEMP 98; O2SAT 98
[2017-04-07] MEDS ORDERED: LATANOPROST 0.005% OPHT SOLN 2.5 ML BTL EACH EYE SCH (21:00)
[2017-04-08] VITALS: BP 171/83; PULSE 87; RESP 18; TEMP 98.4; O2SAT 98
[2017-04-08] MEDS: SODIUM CHLOR 0.9% 1000 ML INJ 1,000 ML IV SCH ×2 (01:19→10:12)
[2017-04-08 04:00] VITALS: BP 161/74; PULSE 77; RESP 18; TEMP 98; O2SAT 96
[2017-04-08 07:55] VITALS: BP 178/79; PULSE 60; RESP 20; TEMP 97.3; O2SAT 98
[2017-04-08] MEDS: TIMOLOL MALEATE 0.5% OPHT SOLN 5 ML BTL EACH EYE SCH (08:18)
[2017-04-08] MEDS: DOCUSATE SODIUM 50 MG/SENNA 8.6 MG TAB PO SCH (08:18)
[2017-04-08] MEDS: BRIMONIDINE TARTRATE 0.2% OPHT SOLN 5 ML BTL EACH EYE SCH (08:18)
[2017-04-08] MEDS: SODIUM CHLORIDE 0.9% FLUSH 10 ML FLUSH IV FLUSH SCH (08:18)
--- NOTE | 2017-04-08 10:43 | HHI.PR ---
Subjective Remarks Follow-up for UTI. The patient is doing well today. She is eating cereal for breakfast. She states that for the past 5 days she has had poor appetite but that is getting better. She states that for quite some time she's been having occasional palpitations. She states that she does not like to take medications , but she does take medications at home for constipation and glaucoma. She is oriented to person, place, and time. Objective Vitals Vital Signs Date Time Temp Pulse Resp B/P Pulse Ox O2 Delivery O2 Flow Rate FiO2 04/08/17 07:55 97.3 60 20 178/79 98 04/08/17 04:00 98.0 77 18 161/74 96 04/08/17 00:00 98.4 87 18 171/83 98 04/07/17 20:00 98.0 87 18 174/87 98 04/07/17 12:25 97.5 73 18 166/78 99 I/O 04/07/17 04/07/17 04/07/17 04/08/17 04/08/17 04/08/17 06:59 14:59 22:59 06:59 14:59 22:59 Intake Total 300 ml 540 ml Balance 300 ml 540 ml Intake Oral 300 ml 540 ml # Voids 4 Result Diagram: 04/07/17 1111 04/07/17 1014 Imaging Last Impressions Head CT 04/06/17 1553 Signed Impressions: Service Date/Time: Thursday, April 06, 2017 16:57 - CONCLUSION: 1. No acute intracranial abnormality identified. Hollis Rodriguez MD Chest X-Ray 04/06/17 1553 Signed Impressions: Service Date/Time: Thursday, April 06, 2017 15:59 - CONCLUSION: 1. COPD changes and mild cardiomegaly. No acute abnormality. Hollis Rodriguez MD Objective Remarks GENERAL: Pleasant. Well-developed well-nourished. In no acute distress. Oriented 3. SKIN: Warm and dry. No lesions noted. HEENT: Normocephalic. Pupils equal and round. Mucous membranes pink and moist. CARDIOVASCULAR: Regular rate and rhythm with occasional PACs. No murmur appreciated. RESPIRATORY: No accessory muscle use. Clear to auscultation. Breath sounds equal bilaterally. GASTROINTESTINAL: Abdomen soft, non-tender, nondistended. Bowel sounds x4. MUSCULOSKELETAL: No obvious deformities. No clubbing or cyanosis. No edema. NEUROLOGICAL: Awake and alert. No focal neurological deficits. Moves upper and lower extremities spontaneously. Normal speech. PSYCHIATRIC: Appropriate mood and affect; insight and judgment normal. A/P Problem List: (1) Altered mental status ICD Code: R41.82 Status: Acute (2) Urinary tract infection ICD Code: N39.0 Status: Acute Assessment and Plan 86-year-old female with past medical history of glaucoma who presented for altered mental status Acute metabolic encephalopathy: suspected due to UTI vs hypertensive. Improved at this time, oriented 3. Reviewed: Head CT negative. UA evidence of UTI. -Decrease IVF as patient tolerating oral intake better -PT consulted, recommended C, case management to arrange. UTI: UA with evidence of UTI. Urine culture growing pansensitive Klebsiella -Received Rocephin IV 2. Changed to oral Augmentin. Accelerated hypertension: BP is uncontrolled. -Start amlodipine Palpitations: EKG with criteria for LVH. PACs on exam, suspect secondary to hypertension. -Monitor DVT prophylaxis: SCDs Discharge Planning Possible discharge home with home health care now that mentation and oral intake has improved. Follow-up BP. Problem Qualifiers (1) Altered mental status: Qualified Code: R41.0 - Disorientation (2) Urinary tract infection: Qualified Code: N30.00 - Acute cystitis without hematuria Trip Allred Apr 08, 2017 10:43
[2017-04-08] MEDS ORDERED: AMOXICILLIN/CLAVULANATE K 875 MG TAB PO SCH (11:00)
[2017-04-08 11:01] VITALS: BP 173/74; PULSE 66; RESP 20; TEMP 97.7; O2SAT 99
[2017-04-08 12:15] VITALS: BP 160/71; PULSE 70; RESP 17; O2SAT 96
--- NOTE | 2017-04-08 12:44 | HHI.DS ---
Discharge Summary Admission Date Apr 06, 2017 at 18:49 Discharge Date: Apr 08, 2017 Admitting Diagnosis UTI with Mental Status Changes (1) Altered mental status ICD Code: R41.82 (2) Urinary tract infection ICD Code: N39.0 Procedures none Brief History - From Admission History and patient, ER provider communication, and review of medical records. Patient was brought in by ambulance because apparently her daughter had called ambulance because patient was more agitated than her usual and was having some visual hallucinations. In the emergency room, patient's workup revealed evidence of UTI. While in CDU, patient's nursing staff also reported that patient was quite agitated and walking in the hallways. She required Haldol administration to reorient her back. However, upon my arrival, patient is awake and alert. Noted she is quite forgetful at times. She reports to me that she lives by herself. She states she told her daughter to call the ambulance. She reports that she was short of breath for the past few days. Stated this shortness of breath is also on and off. She states that she also have chronic back pain which she described as " third vertebrae" pain. She also reports of history of angina. Patient denies any cough/nausea/vomiting/diarrhea. Denies any fever. Denies any burning urination or pain on urination or frequent urination. She does however state that her urine has some funny smell to it. She stated she could not stand it. Reports of some dizziness but did not pass out. She stated she called it as weakness. Denies any blood in her urine or in her stool. She did admit to having visual hallucinations. She stated that she see men walking, about 20 of them. She stated next time she turned around and looked, they were gone. Denies any prior history of hallucinations. Patient was able to recall that she used to take lorazepam. She was able to pronounce the name of the medication. She states however that he has not been taking it for a long while now. She was taking it previously for anxiety. She was also able to spell out the name of her primary care doctor to me. Dr. Crain. CBC/BMP: 04/07/17 1111 04/07/17 1014 Significant Findings Laboratory Tests Test 04/06/17 04/06/17 04/07/17 04/07/17 16:37 17:26 10:14 11:11 Urine Leukocyte Esterase MOD (NEG) Urine WBC 7 /hpf (0-5) Urine Bacteria OCC /hpf (NONE) Prothrombin Time 11.9 SEC (9.8-11.6) Activated Partial 21.0 SEC Thromboplast Time (24.3-30.1) Potassium Level 3.3 MEQ/L (3.5-5.1) Estimat Glomerular Filtration 87 ML/MIN (>89) 68 ML/MIN (>89) Rate Calcium Level 8.1 MG/DL (8.5-10.1) Alkaline Phosphatase 39 U/L (45-117) Monocytes (%) (Auto) 12.4 % 16.0 % (0.0-8.0) (0.0-8.0) Imaging Last Impressions Head CT 04/06/17 1553 Signed Impressions: Service Date/Time: Thursday, April 06, 2017 16:57 - CONCLUSION: 1. No acute intracranial abnormality identified. Hollis Rodriguez MD Chest X-Ray 04/06/17 155 Signed Impressions: Service Date/Time: Thursday, April 06, 2017 15:59 - CONCLUSION: 1. COPD changes and mild cardiomegaly. No acute abnormality. Hollis Rodriguez MD PE at Discharge GENERAL: Pleasant. Well-developed well-nourished. In no acute distress. Oriented 3. SKIN: Warm and dry. No lesions noted. HEENT: Normocephalic. Pupils equal and round. Mucous membranes pink and moist. CARDIOVASCULAR: Regular rate and rhythm with occasional PACs. No murmur appreciated. RESPIRATORY: No accessory muscle use. Clear to auscultation. Breath sounds equal bilaterally. GASTROINTESTINAL: Abdomen soft, non-tender, nondistended. Bowel sounds x4. MUSCULOSKELETAL: No obvious deformities. No clubbing or cyanosis. No edema. NEUROLOGICAL: Awake and alert. No focal neurological deficits. Moves upper and lower extremities spontaneously. Normal speech. PSYCHIATRIC: Appropriate mood and affect; insight and judgment normal. Hospital Course 86-year-old female with past medical history of glaucoma who presented for altered mental status Acute metabolic encephalopathy: suspected due to UTI vs hypertensive. Improved at this time, oriented 3. Reviewed: Head CT negative. UA evidence of UTI. -Decrease IVF as patient tolerating oral intake better -PT consulted, recommended HHC, case management to arrange. UTI: UA with evidence of UTI. Urine culture growing pansensitive Klebsiella -Received Rocephin IV 2. Changed to oral Augmentin. Accelerated hypertension: BP is uncontrolled. -Start amlodipine Palpitations: EKG with criteria for LVH. PACs on exam, suspect secondary to hypertension. -Monitor DVT prophylaxis: SCDs Discharge Planning Mentation and oral intake has improved. BP improved with amlodipine. Discharge home with home health care in stable condition. To follow up as OP with PCP and consultants. Pt Condition on Discharge: Stable Discharge Disposition: Disch w/ Home Health Serv Discharge Time: > 30 minutes Discharge Instructions DIET: Follow Instructions for: Heart Healthy Diet Activities you can perform: Regular-No Restrictions Follow up Referrals: PCP Follow-up - 1 Week with Kandice Crain MD New Medications: Amlodipine (Norvasc) 5 Mg Tab 5 MG PO DAILY Blood Pressure Management #30 TAB Amoxicillin-Clavulanate (Amoxicillin-Clavulanate) 875-125 mg Tab 875 MG PO Q12H Infection #7 TAB Continued Medications: Brimonidine Opth Drops (Brimonidine Opth Drops) 0.2% Soln 1 DROP EACH EYE BID Intraocular pressure #1 Ref 0 BOTTLE Cholecalciferol (Vitamin D) 400 Unit Cap 1 CAP PO DAILY Lorazepam (Lorazepam) 1 Mg Tab 1 MG PO HS PRN ANXIETY AND/OR INSOMNIA Ref 0 TAB Sennosides (Senokot) 8.6 Mg Tab 8.6 MG PO HS Constipation #30 Ref 0 TAB Timolol Opth Drops (Timolol Opth Drops) 0.5 % Soln 1 DROP EACH EYE BID Glaucoma #1 Ref 0 BOTTLE Travoprost Opth Drops (Travatan Z Opth Drops) 0.004 % Soln 1 DROP EACH EYE HS Glaucoma #1 Ref 0 BOTTLE Kelly Yo MD Apr 08, 2017 12:44
[2017-04-08] MEDS ORDERED: AMOX875T2 PO (12:45)
[2017-04-08] MEDS ORDERED: AMLO5 PO (12:47)
[2017-04-09] MEDS ORDERED: amLODIPine BESYLATE 5 MG TAB PO SCH (09:00)
== END 2017-04-08 14:47 | disposition home or self-care (01) ==
LOC: NEPD 15:12 → NEDA 18:49 → NEPGCP 21:13 → NEPFCDU 04-07 21:33
PROVIDERS: ADMIT Hospitalist; ATTEND Hospitalist
DX: N39.0 Urinary tract infection, site not specified (principal); B96.1 Klebsiella pneumoniae [K. pneumoniae] as the cause of diseases classified elsewhere; G93.41 Metabolic encephalopathy; I10 Essential (primary) hypertension; R00.2 Palpitations; G89.29 Other chronic pain; M54.9 Dorsalgia, unspecified; F41.9 Anxiety disorder, unspecified; F03.90 Unspecified dementia, unspecified severity, without behavioral disturbance, psychotic disturbance, mood disturbance, and anxiety; E87.6 Hypokalemia; K59.00 Constipation, unspecified; H40.9 Unspecified glaucoma
CPT/HCPCS: 70450; 71010; 80048; 80053; 81001; 82550; 84443; 84484; 85025; 85610; 85730; 87077; 87086; 87186; 93005; 96361; 96365; 97162; 99285; G0378; G8987; G8988; J0696; J1630; J2060; J7030; J7040